=== PATIENT | male | born 1960 | race Caucasian/White ===

== ENCOUNTER 2017-04-28 20:14 | Emergency (ER) | payer OTHER ==
[2017-04-28] MEDS ORDERED: LORazepam 1 MG TAB PO ONE (20:24)
[2017-04-28] MEDS ORDERED: OLANZapine DISINTEGR 5 MG TAB PO ONE (20:24)
--- NOTE | 2017-04-28 20:26 | EDPHY ---
H & P - Personal History Tetanus Vaccine Date: 2008 - Medical/Surgical History Hx Asthma: No Hx Chronic Respiratory Disease: No Hx Diabetes: No Hx Cardiac Disease: No Hx Renal Disease: No Hx Cirrhosis: No Hx Alcoholism: No Hx HIV/AIDS: No Hx Splenectomy or Spleen Trauma: No Other PMH: c 5/6 fusion. L clavicle repair. Bipolar I with psychotic features - Social History Smoking Status: Current every day smoker Time Seen by Provider: 04/28/17 20:18 HPI/ROS: CHIEF COMPLAINT: "The nazis and [place] are stalking me" HISTORY OF PRESENT ILLNESS: 48-year-old male history of bipolar disorder, arrives via ambulance after he approached in ambulance crew stating that the the nazis and [place] were stalking him. He denies suicidal or homicidal ideation. He is requesting mental health evaluation. States that he has been compliant with his medication. REVIEW OF SYSTEMS: A ten point review of systems was performed and is negative with the exception of the items mentioned in the HPI PAST MEDICAL & SURGICAL HISTORY: Bipolar disorder. Fibromyalgia. SOCIAL HISTORY: Denies alcohol or drug use PHYSICAL EXAM (Prior to examination, patient consented to physical exam, hands were washed and my usual and customary physical exam procedures followed) 1) GENERAL: Well-developed, well-nourished, alert and oriented. Appears to be in no acute distress. 2) HEAD: Normocephalic, atraumatic 3) HEENT: Pupils equal, round, reactive to light bilaterally. Sclera anicteric. 4) NECK: Full range of motion, no meningeal signs. 5) LUNGS: Clear auscultation bilaterally, no wheezes, no rhonchi, no retractions. 6) HEART: Regular rate and rhythm, no murmur, no heave, no gallop. 7) ABDOMEN: No guarding, no rebound, no focal tenderness, negative McBurney's, negative Reynaga's, negative Rovsing's, negative peritoneal sign, 8) MUSCULOSKELETAL: Moving all extremities, no focal areas of tenderness, no obvious trauma. No peripheral edema or discoloration. 9) BACK: No CVA tenderness, no midline vertebral tenderness, no fluctuance, no step-off, no obvious trauma, no visual or palpable abnormality. 10) SKIN: No rash, no petechiae. 11) Psychiatric: Patient is oriented X 3, tangential speech, rapid speech pattern, flight of ideas DIFFERENTIAL DIAGNOSIS: In no particular include but limited to love, psychosis, suicidal ideation (Alli,Connor Guadalupe) Constitutional: Initial Vital Signs Temperature (C) 36.8 C 04/28/17 20:36 Heart Rate 104 H 04/28/17 20:36 Respiratory Rate 18 04/28/17 20:36 Blood Pressure 143/86 H 04/28/17 20:36 O2 Sat (%) 96 04/28/17 20:36 O2 Delivery Mode Room Air Allergies/Adverse Reactions: lithium [Benld] Allergy (Unknown, Verified 04/28/17 20:24) quetiapine fumarate [From Seroquel] Allergy (Unknown, Verified 04/28/17 20:24) TRICYCLIC ANTIDEPRESANTS Allergy (Unknown, Uncoded 04/28/17 20:24) Home Medications: Medication Instructions Recorded Acetaminophen [Tylenol 325mg (*)] 650 mg PO Q4 PRN #0 tab 04/20/15 Benzocaine/Menthol 01/09 [Cepacol 1 ea PO PRN PRN #0 lozenge 04/20/15 Lozenge] Cyclobenzaprine [Flexeril 10 MG 10 mg PO TID #90 tab 04/20/15 (*)] Dronabinol [Marinol 2.5 MG (*)] 10 mg PO TID #90 cap 04/20/15 Ibuprofen [Motrin (*)] 600 mg PO Q6 PRN #0 tab 04/20/15 Paliperidone [Invega 9mg ER (*)] 9 mg PO DAILY #30 tab.er 04/20/15 Polyethylene Glycol 3350 [Miralax 17 gm PO HS #0 pkt 04/20/15 17 gm (*)] Psyllium Seed [Metamucil (*)] 1 each PO DAILY #0 pkt 04/20/15 carBAMazepine [Tegretol] 200 mg PO BID #60 tab 04/20/15 clonazePAM [Klonopin (*)] 0.5 mg PO TID PRN #60 tab 04/20/15 diphenhydrAMINE [Benadryl 50 MG 50 mg PO AD PRN #0 cap 04/20/15 (*)] lamoTRIgine [LamICTAL 100 MG (*)] 200 mg PO DAILY #30 tab 04/20/15 Medical Decision Making ED Course/Re-evaluation: 8:30 p.m.: I discussed this case with secondary supine position Dr. Arnaldo Christensen. The patient has been placed on M1 hold as I believe him to be gravely disabled, acutely manic, unable to care for himself. 1:00 a.m. care turned over to Dr. Badillo (Connor Carson) 10:20 a.m. I discussed the case with mental health. They would like to admit the patient to the psychiatric service. They will begin looking for placement. 3:00 p.m. care transferred to Dr. Judd Owusu. (Can Su) The patient was not seen by me while he was in the emergency department. However his care was discussed with the PA while the patient was in the department. I agree with treatment plan and management. I a.m. the secondary supervising physician (Arnaldo Christensen) Other Provider: 22:30 care assumed by me from Dr. Owusu pending placement. (Sergio Sweeney) I assumed care of this patient from Dr. Sweeney at 7:00 a.m., change of shift. At 8 o'clock, transfer paperwork was signed by myself. Patient be transferred [facility]. Accepting physician Dr. Martinez. (Shena Bonilla) - Data Points Laboratory Results: Laboratory Results 04/28/17 20:47 04/28/17 20:47 Medications Given: Discontinued Medications Haloperidol Lactate (Haldol Injection) 5 mg IM EDNOW ONE Stop: 04/28/17 21:08 Last Admin: 04/28/17 21:12 Dose: 5 mg Lorazepam (Ativan) 2 mg PO EDNOW ONE Stop: 04/28/17 20:25 Last Admin: 04/28/17 20:49 Dose: 2 mg Lorazepam (Ativan) 1 mg PO EDNOW ONE Stop: 04/29/17 14:18 Last Admin: 04/29/17 14:21 Dose: 1 mg Lorazepam (Ativan) 1 mg PO EDNOW ONE Stop: 04/29/17 23:24 Last Admin: 04/29/17 23:26 Dose: 1 mg Olanzapine (Zyprexa Zydis) 5 mg PO EDNOW ONE Stop: 04/28/17 20:25 Last Admin: 04/28/17 20:49 Dose: 5 mg Olanzapine (Zyprexa Zydis) 10 mg PO EDNOW ONE Stop: 04/29/17 12:23 Last Admin: 04/29/17 12:27 Dose: 10 mg Departure - Departure Disposition: Other Psych, Not [facility] Clinical Impression: Acute psychosis, Bipolar I disorder with love Condition: Fair Referrals: Patient,NotPresent [Unknown] - As per Instructions
[2017-04-28 20:59] LABS: % IMMATURE GRANULYOCYTES 0.3 % (0.0-1.1); ABSOLUTE IMMATURE GRANULOCYTES 0.03 10^3/uL (0.00-0.10); ADD DIFF? NO; ADD MORPH? NO; ADD SCAN? NO; ATYPICAL LYMPHOCYTE FLAG 10 (0-99); FRAGMENT RBC FLAG 0 (0-99); HEMATOCRIT 45.7 % (40.0-51.0); HEMOGLOBIN 15.8 g/dL (13.7-17.5); LEFT SHIFT FLG 0 (0-99); LIPEMIA HEMOLYSIS FLAG 90 (0-99); MEAN CELL HEMOGLOBIN CONCENTR. 34.6 g/dL (32.4-36.7); MEAN CELL VOLUME 86.9 fL (81.5-99.8); MEAN PLATELET VOLUME 9.7 fL (8.7-11.7); PLATELET CLUMPS FLAG 20 (0-99); PLATELET COUNT 294 10^3/uL (150-400); RED BLOOD CELL COUNT 5.26 10^6/uL (4.40-6.38); RED CELL DISTRIBUTION WIDTH 13.2 % (11.5-15.2)
[2017-04-28] MEDS ORDERED: HALOPERIDOL LACT 5 MG/ML INJ IM ONE (21:07)
[2017-04-28 21:22] LABS: CALCIUM 10.2 mg/dL (8.5-10.4); CARBON DIOXIDE 25 mEq/l (22-31); CREATININE 1.4 mg/dL (0.7-1.3); GLOMERULAR FILTRATION RATE 52; GLUCOSE 101 mg/dL (70-100); POTASSIUM 4.1 mEq/L (3.5-5.2); SODIUM 146 mEq/L (134-144)
[2017-04-28 21:31] LABS: ANION GAP 15 mEq/L (8-16); CHLORIDE 106 mEq/L (97-110); ETHANOL SERUM < 10 mg/dL (0-10)
[2017-04-29] MEDS ORDERED: OLANZapine DISINTEGR 10 MG TAB PO ONE (12:22)
[2017-04-29] MEDS ORDERED: LORazepam 1 MG TAB PO ONE ×2 (14:17→23:23)
[2017-04-30] MEDS ORDERED: CEPACOL LOZENGE PO ONE (04:22)
[2017-04-30 08:08] VITALS: BP 137/103; PULSE 90; RESP 16; TEMP 98.4; O2SAT 94
== END 2017-04-30 10:12 ==
LOC: EDUNIT#
DX: F31.9 Bipolar disorder, unspecified (principal); F23 Brief psychotic disorder; F17.200 Nicotine dependence, unspecified, uncomplicated
CPT/HCPCS: 80305; G0480; J1630

== ENCOUNTER 2017-05-29 21:00 | Emergency (ER) | payer OTHER, MEDICAID ==
--- NOTE | 2017-05-29 21:02 | EDPHY ---
H & P Time Seen by Provider: 05/29/17 21:01 HPI/ROS: CHIEF COMPLAINT: Headache HISTORY OF PRESENT ILLNESS: The patient presents to the ED with a acute headache that began at 7:00 p.m.. The patient has a history of migraine headaches and describes as a fairly typical migraine with photophobia and nausea. The patient denies any history of fall or trauma. The patient did take ibuprofen and Tylenol without improvement of his symptoms. The patient denies any acute numbness or weakness. He denies fever. He has no complaints of cough or congestion. REVIEW OF SYSTEMS: A comprehensive 10 point review of systems is otherwise negative aside from elements mentioned in the history of present illness. Source: Patient Exam Limitations: No limitations - Personal History Tetanus Vaccine Date: 2008 - Medical/Surgical History Hx Asthma: No Hx Chronic Respiratory Disease: No Hx Diabetes: No Hx Cardiac Disease: No Hx Renal Disease: No Hx Cirrhosis: No Hx Alcoholism: No Hx HIV/AIDS: No Hx Splenectomy or Spleen Trauma: No Other PMH: c 5/6 fusion. L clavicle repair. Bipolar I with psychotic features - Social History Smoking Status: Current every day smoker - Physical Exam Exam: General Appearance: Alert, no distress Eyes: Pupils equal and round no pallor or injection ENT, Mouth: Mucous membranes moist Respiratory: There are no retractions, lungs are clear to auscultation Cardiovascular: Regular rate and rhythm Gastrointestinal: Abdomen is soft and nontender, no masses, bowel sounds normal Neurological: A&O, normal motor function, normal sensory exam, normal cranial nerves Skin: Warm and dry, no rashes Musculoskeletal: Neck is supple nontender, no meningeal symptoms present Extremities: symmetrical, full range of motion Constitutional: Initial Vital Signs Temperature (C) 36.9 C 05/29/17 21:00 Heart Rate 85 05/29/17 21:00 Respiratory Rate 18 05/29/17 21:00 Blood Pressure 129/97 H 05/29/17 21:00 O2 Sat (%) 93 05/29/17 21:00 O2 Delivery Mode Room Air Allergies/Adverse Reactions: lithium [Pender] Allergy (Unknown, Verified 05/29/17 21:01) quetiapine fumarate [From Seroquel] Allergy (Unknown, Verified 05/29/17 21:01) TRICYCLIC ANTIDEPRESANTS Allergy (Unknown, Uncoded 04/28/17 20:24) Home Medications: Medication Instructions Recorded Acetaminophen [Tylenol 325mg (*)] 650 mg PO Q4 PRN #0 tab 04/20/15 Benzocaine/Menthol 01/09 [Cepacol 1 ea PO PRN PRN #0 lozenge 04/20/15 Lozenge] Cyclobenzaprine [Flexeril 10 MG 10 mg PO TID #90 tab 04/20/15 (*)] Dronabinol [Marinol 2.5 MG (*)] 10 mg PO TID #90 cap 04/20/15 Ibuprofen [Motrin (*)] 600 mg PO Q6 PRN #0 tab 04/20/15 Paliperidone [Invega 9mg ER (*)] 9 mg PO DAILY #30 tab.er 04/20/15 Polyethylene Glycol 3350 [Miralax 17 gm PO HS #0 pkt 04/20/15 17 gm (*)] Psyllium Seed [Metamucil (*)] 1 each PO DAILY #0 pkt 04/20/15 carBAMazepine [Tegretol] 200 mg PO BID #60 tab 04/20/15 clonazePAM [Klonopin (*)] 0.5 mg PO TID PRN #60 tab 04/20/15 lamoTRIgine [LamICTAL 100 MG (*)] 200 mg PO DAILY #30 tab 04/20/15 Lunesta 05/29/17 diphenhydrAMINE [Benadryl 50 MG 50 mg PO AD PRN 05/29/17 (*)] Medical Decision Making ED Course/Re-evaluation: The patient presents the ED for an acute headache. The patient has a history of migraines. The patient has a normal neurologic examination without clinical evidence of meningitis. The patient will be treated empirically for migraine with IV Phenergan, Benadryl and Toradol. I re-evaluated the patient at 10:40 p.m.. He states his headache has entirely resolved. His neurologic examination remains normal. The patient will be discharged in stable condition at this point time. Differential Diagnosis: Differential diagnosis considered includes tension headache, migraine headache, meningitis, subarachnoid hemorrhage - Data Points Medications Given: Discontinued Medications Diphenhydramine HCl (Benadryl Injection) 50 mg IVP EDNOW ONE Stop: 05/29/17 21:31 Last Admin: 01/10/18 21:44 Dose: 50 mg Ketorolac Tromethamine (Toradol) 30 mg IVP EDNOW ONE Stop: 05/29/17 21:31 Last Admin: 05/29/17 21:46 Dose: 30 mg Metoclopramide HCl (Reglan Injection) 10 mg IVP EDNOW ONE Stop: 05/29/17 21:31 Last Admin: 05/29/17 21:39 Dose: Not Given Promethazine HCl (Phenergan) 12.5 mg IVP EDNOW ONE Stop: 05/29/17 21:39 Last Admin: 05/29/17 21:48 Dose: 12.5 mg Departure - Departure Disposition: Home, Routine, Self-Care Clinical Impression: Headache Qualifiers: Headache chronicity pattern: acute headache Intractability: not intractable Condition: Good Instructions: Migraine Headache (ED) Additional Instructions: 1. Tylenol and ibuprofen as needed for pain. 2. Please schedule a follow[facility]up appointment [facility]. 3. Please return to the ED for severe headache, high fever, neck stiffness or other concerns. Referrals: [facility],. [Clinic] - As per Instructions
[2017-05-29 21:07] VITALS: PULSE 85; RESP 18; TEMP 98.4
[2017-05-29] MEDS ORDERED: KETOROLAC 30 MG/1 ML SDV IVP ONE (21:30)
[2017-05-29] MEDS ORDERED: METOCLOPRAMIDE 10 MG/2 ML VIAL IVP ONE (21:30)
[2017-05-29] MEDS ORDERED: PROMETHAZINE HCL 25 MG/ML INJ IVP ONE (21:38)
[2017-05-29 22:46] VITALS: BP 123/79; O2SAT 94
== END 2017-05-29 22:54 | disposition home or self-care (01) ==
LOC: EDUNIT#
DX: R51 Headache (principal); F17.200 Nicotine dependence, unspecified, uncomplicated
CPT/HCPCS: 96374; 96375; 99284; J1200; J1885; J2550